=== PATIENT | female | born 2000 | race Hispanic/Latino ===

== ENCOUNTER 2018-07-12 21:44 | Emergency (ER) | payer MEDICAID ==
[2018-07-12 22:01] VITALS: BP 141/89
--- NOTE | 2018-07-12 23:40 | XRay Report ---
FINAL REPORT PROCEDURE: XR CHEST ROUTINE 2V TECHNIQUE: PA and lateral chest radiographs were obtained. CPT 27218 HISTORY: rapid heart rate COMPARISON: No prior studies are available for comparison. FINDINGS: Heart: Normal. Mediastinum/Vessels: Normal. Lungs/Pleural space: Normal. Bony thorax: No acute osseous abnormality. Other: IMPRESSION: Normal examination.
== END 2018-07-13 00:27 | disposition left against medical advice (07) ==
LOC: ED 21:44
DX: R06.00 Dyspnea, unspecified (principal); Z53.21 Procedure and treatment not carried out due to patient leaving prior to being seen by health care provider
CPT/HCPCS: 71046; 93005; 93010

== ENCOUNTER 2020-08-27 11:29 | Emergency (ER) | payer OTHER ==
[2020-08-27 13:26] LABS: Basophils % (Auto) 0.3 % (0.0-1.8); Eosinophils % (Auto) 0.1 % (0.0-4.3); Hematocrit 44.2 % (30.3-42.9); Hemoglobin 14.8 gm/dl (10.1-14.3); Lymphocytes # (Auto) 1.2 K/mm3 (1.2-5.4); Mean Corpuscular HGB Conc 33 % (30-34); Mean Corpuscular Volume 86 fl (79-97); Monocytes # (Auto) 0.6 K/mm3 (0.0-0.8); Monocytes % (Auto) 5.2 % (0.0-7.3); Platelet Count 177 K/mm3 (140-440); Red Blood Count 5.14 M/mm3 (3.65-5.03); Red Cell Distribution Width 13.7 % (13.2-15.2)
[2020-08-27 13:46] LABS: Blood Urea Nitrogen 9 mg/dL (7-17); Calcium 9.9 mg/dL (8.4-10.2); Hemolysis Index 10
[2020-08-27 13:47] LABS: BUN/Creatinine Ratio 18
--- NOTE | 2020-08-27 13:58 | Emergency Department Report ---
ED General Adult HPI - General Chief complaint: Weakness Stated complaint: ANXIETY Source: patient Mode of arrival: Ambulatory Limitations: No Limitations - History of Present Illness Initial comments: 19-year-old female states that she woke up this morning feeling weak dizzy and lightheaded she denies nausea and vomiting no fever no chills no cough no abdominal pain no urinary symptoms. Patient states her last menstrual period was on 08/10/2020. She denies any past medical history no recent trauma. Admits to being under a lot of stress. -: Sudden Severity scale (0 -10): 0 Improves with: none Worsens with: none Associated Symptoms: weakness. denies: confusion, cough, diaphoresis, fever/chills, headaches, loss of appetite, rash, shortness of breath, syncope Treatments Prior to Arrival: none - Related Data Previous Rx's Medication Instructions Recorded Last Taken Type Naproxen [Naprosyn TAB] 375 mg PO BID PRN #20 tablet 08/11/15 Unknown Rx Allergies Allergy/AdvReac Type Severity Reaction Status Date / Time No Known Allergies Allergy Verified 07/12/18 21:56 ED Review of Systems ROS: Stated complaint: ANXIETY Other details as noted in HPI Comment: All other systems reviewed and negative Constitutional: denies: chills, fever Eyes: denies: eye pain, eye discharge, vision change ENT: denies: ear pain, throat pain, dental pain, hearing loss Cardiovascular: as per HPI Endocrine: no symptoms reported Gastrointestinal: denies: abdominal pain, nausea, vomiting Genitourinary: denies: urgency, dysuria, frequency, hematuria Skin: denies: rash, lesions Neurological: weakness (generalized ), other ("lightheaded"). denies: headache, numbness, paresthesias, confusion Psychiatric: denies: anxiety, depression, auditory hallucinations, visual hallucinations, homicidal thoughts, suicidal thoughts ED Past Medical Hx - Past Medical History Previous Medical History?: No - Surgical History Past Surgical History?: No - Social History Smoking Status: Never Smoker Substance Use Type: None - Medications Home Medications: Home Medications Medication Instructions Recorded Confirmed Last Taken Type Naproxen [Naprosyn TAB] 375 mg PO BID PRN #20 tablet 08/11/15 Unknown Rx ED Physical Exam - General Limitations: No Limitations General appearance: alert, in no apparent distress - Head Head exam: Absent: atraumatic - Eye Eye exam: Present: normal appearance - ENT ENT exam: Present: normal exam, mucous membranes moist - Neck Neck exam: Present: normal inspection - Respiratory Respiratory exam: Present: normal lung sounds bilaterally. Absent: respiratory distress - Cardiovascular Cardiovascular Exam: Present: regular rate, normal rhythm, normal heart sounds - GI/Abdominal GI/Abdominal exam: Present: soft. Absent: distended - Extremities Exam Extremities exam: Present: normal inspection - Back Exam Back exam: Present: normal inspection - Neurological Exam Neurological exam: Present: alert, oriented X3, CN II-XII intact, other (steady gait) - Psychiatric Psychiatric exam: Present: normal affect - Skin Skin exam: Present: warm, dry, intact ED Course Vital Signs 08/27/20 11:34 Temperature 98.4 F Pulse Rate 98 H Respiratory 20 Rate Blood Pressure 121/79 O2 Sat by Pulse 97 Oximetry - Reevaluation(s) Reevaluation #1: 08/27/20 15:25 Patient without distress awaiting urine results ED Medical Decision Making - Lab Data Result diagrams: 08/27/20 13:18 08/27/20 13:18 - Medical Decision Making Urine negative negative urinalysis stable blood work patient ambulating in the ER in no distress with no current complaints she does admit to being under increased stress she feels this was just an anxiety attack. States she has them more frequently now. She denies any suicidal ideation but would mind talking to someone. Patient given referrals to Dr. Nichols and [facility]. Critical Care Time: No Critical care attestation.: If time is entered above; I have spent that time in minutes in the direct care of this critically ill patient, excluding procedure time. ED Disposition Clinical Impression: Anxiety, Stress and adjustment reaction Disposition: [id number] TO HOME OR SELFCARE Is pt being admited?: No Does the pt Need Aspirin: No Condition: Stable Instructions: Anxiety (ED) Additional Instructions: Follow-up with Dr. Vieira and or [facility]. Consider meditation or yoga to deal with stressful situations Referrals: PRIMARY CARE, [Primary Care Provider] - 3-5 Days ABDIAS VIEIRA MD [Staff Physician] - 3-5 Days [facility] [Outside] - 3-5 Days
[2020-08-27 16:27] LABS: Bilirubin,Urine NEG (Negative); Blood,Urine NEG (Negative); Color,Urine Yellow (Yellow); Mucus,Urine FEW /HPF; Protein,Urine <15 mg/dL mg/dL (Negative)
[2020-08-27 16:32] LABS: HCG Qualitative,Urine Negative (Negative)
[2020-08-27 17:12] VITALS: BP 122/96
== END 2020-08-27 17:11 | disposition home or self-care (01) ==
LOC: ED 11:29
DX: F41.1 Generalized anxiety disorder (principal); F43.0 Acute stress reaction; Z79.899 Other long term (current) drug therapy
CPT/HCPCS: 36415; 80048; 81001; 81025; 85025